=== PATIENT | male | born 1985 | race Caucasian/White ===

== ENCOUNTER 2020-05-02 13:55 | Emergency (ER) | payer OTHER, SELFPAY ==
[2020-05-02 14:18] VITALS: BP 122/78; PULSE 67; RESP 18; TEMP 36.8; O2SAT 98; BMI 28.7
--- NOTE | 2020-05-02 14:29 | DI.RAD.S_ITS ---
PROCEDURE: XR FINGER RT MIN 2V INDICATIONS: right index finger, swollen, unable to flex completely TECHNIQUE: AP hand, 2 views of the index finger(s) acquired. COMPARISON: None. FINDINGS: Bones: No fractures or dislocations. No suspicious bony lesions. A subtle rounded lucency is identified involving the central aspect of the tuft of the distal phalanx of the index finger. Mild degenerative changes of the right hand are present. Soft tissues: No suspicious soft tissue calcifications. Soft tissue swelling on the distal aspect of the index finger is present. No radiopaque foreign bodies are identified. IMPRESSION: 1. No acute fractures. 2. Soft tissue swelling of the index finger. 3. Questionable erosion versus congenital variant involving the tuft of the distal phalanx. If there is clinical concern for osteomyelitis, please consider contrast enhanced MRI of the right hand for further evaluation. Dictated by: Keagan Barba M.D. on 05/02/2020 at 14:16 Approved by: Keagan Barba M.D. on 05/02/2020 at 14:18
--- NOTE | 2020-05-02 14:31 | ED_ITS ---
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 He does not remember injuring his right index finger. He is right-hand dominant. For the last 3 days he has had pain and discomfort in his right index finger unable to flex it completely. The right index finger has bent swollen. He seems to be most tender over the proximal interphalangeal joint. For the pain and discomfort he took 1000 mg of ibuprofen yesterday. He has had no fall or injury that he is aware of. He denies any headache chest pain cough shortness of breath any belly pain nausea or vomiting. Related Data Home Medications Medication Instructions Recorded Confirmed APAP/Ca Carbonate/Mg Carbona 500 mg PO PRN #0 05/31/12 (#EXCEDRIN DUAL ASPIRIN FREE) cephalexin #0 05/31/12 ibuprofen 800 mg PO TID #0 05/31/12 Allergies Allergy/AdvReac Type Severity Reaction Status Date / Time No Known Drug Allergies Allergy Verified 05/02/20 14:23 Review of Systems Review of Systems Narrative: Review of systems are all negative except for those mentioned in the history of present illness. Patient History Social History Smoking Status: Former smoker Smoking Status: Former smoker alcohol intake frequency: 0-2 drinks per day Substance Use Type: does not use Exam Narrative Exam Narrative: PHYSICAL EXAM: CONSTITUTIONAL: Awake, Alert, Oriented, Coherent, Cooperative in NAD. Does not appear toxic or ill. HEAD: AT/NC EENT: PERRL, FROM of eyes, . MOUTH:Oral mucosa is moist and pink. NECK: Supple, no obvious JVD, Trachea is midline without stridor, LUNGS: Clear, symmetrical breath sounds without respiratory distress. HEART: Normal heart tones, regular rhythm and rate without murmur. ABDOMEN: Soft, non-tender, EXTREMITIES: Patient's right index finger is diffusely swollen especially the proximal phalanx. Proximal interphalangeal joint of the right index finger is diffusely tender and boggy without bruising or erythema. The patient has limited ability to completely flex the finger can comparison to his left. NEURO: Awake, alert, oriented, conversive, cranial nerves II-XII are symmetrical , moves all 4 extremities and is ambulatory. Initial Vital Signs Initial Vital Signs: Vital Signs Temperature 98.2 F 05/02/20 14:18 Pulse Rate 67 05/02/20 14:18 Respiratory Rate 18 05/02/20 14:18 Blood Pressure 122/78 05/02/20 14:18 Pulse Oximetry 98 05/02/20 14:18 Course Course Course Narrative: 1447: No fracture noted. Clinically acts like a jammed finger. Orders Ordered: Discontinued Medications Ibuprofen (Advil) 800 mg PO NOW ONE Stop: 05/02/20 14:30 Last Admin: 05/02/20 14:44 Dose: 800 mg Documented by: EUSEBIA Vital Signs Vital signs: Vital Signs - 8 hr 05/02/20 14:18 Temperature 98.2 F Pulse Rate 67 Respiratory Rate 18 Blood Pressure 122/78 Pulse Oximetry 98 Discharge Plan Departure Patient Disposition: Home Clinical Impression: Finger swelling Fingernail injury Qualifiers: Encounter type: initial encounter Laterality: right Qualified Code(s): S69.91XA - Unspecified injury of right wrist, hand and finger(s), initial encounter Jammed interphalangeal joint of finger of right hand Qualifiers: Encounter type: initial encounter Qualified Code(s): S69.91XA - Unspecified injury of right wrist, hand and finger(s), initial encounter Discharge Date/Time: 05/02/20 15:30 Instructions: DI for Finger Flexor Tendon Injury Activity Restrictions/Additional Instructions: 1. Follow-up with your primary care physician. 2. Avoid motions with your finger that are painful. X-rays reveal no fracture. Clinically you are tender over the proximal finger joint which is most commonly caused by jamming the finger. 3. Apply ice cold compresses to the finger every 2 hours for 20-30 minutes to help with the swelling. 4. For the pain and discomfort you can take 3, 200 mg ibuprofen tablets every 6 hours. 5. If the finger becomes red hot or more swollen you need to be re-evaluated and check to make sure your not developing an infection in the finger. Prescriptions: No Action ibuprofen 800 MG tablet 800 mg PO TID Qty: 0 RF: 0 APAP/Ca Carbonate/Mg Carbona (#EXCEDRIN DUAL ASPIRIN FREE) 500 mg PO PRN Qty: 0 RF: 0 cephalexin 250 MG capsule Qty: 0 RF: 0
[2020-05-02] MEDS: IBUPROFEN 400 MG TABLET 800 MG PO (14:44)
[2020-05-02 15:09] VITALS: BP 109/67; PULSE 53; RESP 16; O2SAT 98
== END 2020-05-02 15:30 | disposition home or self-care (01) ==
PROVIDERS: Emergency Provider Emergency Medicine
DX: S69.91XA Unspecified injury of right wrist, hand and finger(s), initial encounter (principal)
CPT/HCPCS: 73140; 99283

== ENCOUNTER → 2020-07-09 06:38 | Outpatient (CLI) | payer OTHER, SELFPAY ==
--- NOTE | 2020-07-09 | DI.RAD.S_ITS ---
PROCEDURE: XR EYE FOREIGN BODY RT INDICATIONS: METAL SCREEN FOR MRI TECHNIQUE: A single view of the right orbit was acquired. COMPARISON: None. FINDINGS: Soft tissues: No metallic foreign bodies are visualized around the orbits. Bones: Bony structures appear unremarkable. Visualized sinuses appear clear. IMPRESSION: No contraindication to MR scanning seen at the right orbit. Dictated by: Benito Gupta M.D. on 07/09/2020 at 8:16 Approved by: Benito Gupta M.D. on 07/09/2020 at 8:16
--- NOTE | 2020-07-09 | DI.RAD.S_ITS ---
PROCEDURE: XR EYE FOREIGN BODY LT INDICATIONS: METAL SCREEN FOR MRI TECHNIQUE: A single view of the left orbit was acquired. COMPARISON: None. FINDINGS: Soft tissues: No metallic foreign bodies are visualized around the orbits. Bones: Bony structures appear unremarkable. Visualized sinuses appear clear. IMPRESSION: No contraindication to MR scanning left orbit area. Dictated by: Benito Gupta M.D. on 07/09/2020 at 8:15 Approved by: Benito Gupta M.D. on 07/09/2020 at 8:16
--- NOTE | 2020-07-09 06:40 | DI.MRI.S_ITS ---
PROCEDURE: MR HAND RT WO CON INDICATIONS: R index finger pain/swelling distal to PIP joint x 1 month TECHNIQUE: Noncontrast coronal T1 spin echo and T2 fast spin echo with fat saturation, axial proton density fast spin echo and T2 fast spin echo with fat saturation, sagittal T1 spin echo and STIR through the hand and fingers. COMPARISON: [facility], CR, XR FINGER RT MIN 2V, 05/02/2020, 14:24. FINDINGS: Image quality: Mildly compromised by patient motion on coronal T2 fat-suppressed images. Diagnostic information is obtained. Bones: The bones are normally aligned, without marrow contusions or fractures. No intra-osseous lesions. Mild degenerative changes are seen at the 1st metacarpophalangeal joint and the 1st carpometacarpal joint. Small nonspecific cystic changes are seen in the 2nd metacarpal head. Chronic fracture deformity is seen at the base of the third metacarpal with mild foreshortening. Mild degenerative changes are seen in the distal interphalangeal joints. Extensor apparatus: The central slips insert normally on the middle phalangeal base. The conjoint and terminal tendons insert normally on the distal phalangeal bases. More proximal portions of the extensor tendons also appear normal. Flexor apparatus: The flexor digitorum superficialis and profundus tendons both appear intact. All annular and cruciform pulleys appear intact, without adjacent soft tissue edema. Soft tissues: Mild nonspecific subcutaneous edema is seen dorsal to the base of the 2nd middle phalanx. Focal subcutaneous signal abnormality is seen at the volar aspect of the thumb adjacent to the interphalangeal joint measuring 6 x 4 x 3 mm. There is a focus of metallic artifact in the subcutaneous tissues at the dorsal radial aspect of the 2nd metacarpophalangeal joint. Visualized muscles demonstrate normal bulk and internal signal. No intramuscular masses identified. IMPRESSION: 1. Mild nonspecific subcutaneous edema at the dorsal aspect of the index finger adjacent to the base of the middle phalanx without a discrete masslike lesion. 2. A more focal area of subcutaneous signal abnormality is seen at the volar aspect of the thumb adjacent to the interphalangeal joint measuring 6 x 4 x 3 mm, possibly representing a ganglion cyst. Recommend correlation with physical exam findings. 3. No acute osseous or ligamentous abnormality is seen. Chronic fracture deformity of the 3rd proximal metacarpal. 4. Mild scattered degenerative changes in the hand as described above. Dictated by: Humberto Lobo M.D. on 07/09/2020 at 9:51 Approved by: Humberto Lobo M.D. on 07/09/2020 at 10:09
== END ==
PROVIDERS: PCP Registered Nurse Diabetes Educator; Referring Provider Registered Nurse Diabetes Educator; Visit Provider Registered Nurse Diabetes Educator
DX: M79.644 Pain in right finger(s) (principal); R60.0 Localized edema; Z13.5 Encounter for screening for eye and ear disorders
CPT/HCPCS: 70030; 73218

== ENCOUNTER → 2023-11-24 08:14 | Outpatient (CLI) | payer OTHER, SELFPAY ==
[2023-11-24 09:26] LABS: Hemoglobin 15.3 g/dL (13.5-17.5); Mean Corpuscular HGB Conc 34.7 % (30-36); Mean Corpuscular Hemoglobin 30.8 PG (26-34); Mean Corpuscular Volume 88.7 fL (80-100); Platelet Count 346 X10^3/uL (150-400); Red Blood Cell Count 4.97 X10^6/uL (4.5-5.9); White Blood Cell Count 7.3 X10^3/uL (4.5-11.0)
[2023-11-24 09:38] LABS: Alanine Aminotransferase 74 IU/L (<50); Albumin 4.6 g/dL (3.5-5.0); Albumin Globulin Ratio 1.4 (1.0-2.8); Alkaline Phosphatase 44 U/L (38-126); Aspartate Aminotransferase 38 IU/L (17-59); BUN Creatinine Ratio 17.1 (6-22); Bilirubin Total 1.5 mg/dL (0.2-1.3); Blood Urea Nitrogen 13 mg/dL (9-20); Calcium 9.7 mg/dL (8.4-10.2); Carbon Dioxide 30 mmol/L (22-32); Chloride 104 mmol/L (98-107); Cholesterol 180 mg/dL (140-199); Estimated Glomerular Filt Rate > 60 mL/min (>60); Globulin 3.3 g/dL (1.7-4.1); Glucose 94 mg/dL (70-100); HDL Cholesterol 39 mg/dL (40-60); HEMOLYSIS < 15 (0-50); LDL Cholesterol Calculated 112 mg/dL (<100); Potassium 4.3 mmol/L (3.4-5.1); Sodium 138 mmol/L (137-145); Total Protein 7.9 g/dL (6.3-8.2); Triglycerides 143 mg/dL (35-150)
[2023-11-24 10:07] LABS: TSH w/ Reflex to FT4 0.83 uIU/mL (0.47-4.68)
== END ==
LOC: LAB 08:16
PROVIDERS: PCP Registered Nurse Diabetes Educator; Referring Provider Registered Nurse Diabetes Educator; Visit Provider Registered Nurse Diabetes Educator
DX: Z00.00 Encounter for general adult medical examination without abnormal findings (principal)
CPT/HCPCS: 36415; 80053; 80061; 84443; 85027

== ENCOUNTER → 2024-02-23 07:40 | Outpatient (CLI) | payer OTHER, SELFPAY ==
[2024-02-23 09:17] LABS: Alanine Aminotransferase 84 IU/L (<50); Albumin 4.7 g/dL (3.5-5.0); Albumin Globulin Ratio 2.1 (1.0-2.8); Alkaline Phosphatase 49 U/L (38-126); Aspartate Aminotransferase 43 IU/L (17-59); Bilirubin Total 1.7 mg/dL (0.2-1.3); Bilirubin Unconjugated 1.5 mg/dL (0.0-1.1); Globulin 2.2 g/dL (1.7-4.1); HEMOLYSIS < 15 (0-50); Total Protein 6.9 g/dL (6.3-8.2)
== END ==
LOC: LAB 07:43
PROVIDERS: PCP Registered Nurse Diabetes Educator; Referring Provider Registered Nurse Diabetes Educator; Visit Provider Registered Nurse Diabetes Educator
DX: R74.8 Abnormal levels of other serum enzymes (principal)
CPT/HCPCS: 36415; 80076

== ENCOUNTER → 2024-03-21 16:32 | Outpatient (CLI) | payer OTHER, SELFPAY ==
--- NOTE | 2024-03-21 17:00 | DI.US.S_ITS ---
PROCEDURE: US ABDOMEN LIMITED INDICATIONS: eval elevated liver enzyme TECHNIQUE: Real-time scanning was performed of the abdominal and retroperitoneal organs, with image documentation. COMPARISON: None. FINDINGS: Evaluation is limited secondary to patient body habitus/bowel gas. Liver: Liver is normal in size and homogeneous in echotexture. Liver parenchyma is diffusely echogenic. Gallbladder: Decompressed, limiting evaluation. No visualized stones or sludge. Normal wall thickness measuring 3 mm. Biliary ducts: Intrahepatic bile ducts are non-dilated. Extrahepatic bile ducts is normal in caliber measuring 2 mm. Pancreas: Not well seen secondary to bowel gas. IMPRESSION: Evaluation is limited secondary to patient body habitus/bowel gas. 1. Liver parenchyma is diffusely echogenic which may be seen in the setting of parenchymal disease such as steatosis. Evaluation of the parenchyma is limited secondary to bowel gas/habitus. If there is clinical suspicion for a mass, recommend a CT or MRI (liver mass protocol). 2. Gallbladder is decompressed with no evidence of acute cholecystitis. No visualized biliary ductal dilatation. Dictated by: Rangel Coleman M.D. on 03/23/2024 at 8:00 Approved by: Rangel Coleman M.D. on 03/23/2024 at 8:02
[2024-03-21 18:19] LABS: HEMOLYSIS < 15 (0-50); Iron 101 ug/dL (49-181)
[2024-03-21 18:31] LABS: Percent Iron Saturation 28 % (20-50); Total Iron Binding Capacity 358 ug/dL (261-462); Transferrin 275 mg/dL (206-381)
[2024-03-21 18:56] LABS: Ferritin 98 ng/mL (18-464)
[2024-03-21 20:37] LABS: Hepatitis B Surface Antigen NEGATIVE s/c (NEGATIVE)
[2024-03-21 20:52] LABS: Hep C Virus Ab w/Reflex Quant NEGATIVE s/c (NEGATIVE)
== END ==
PROVIDERS: PCP Registered Nurse Diabetes Educator; Referring Provider Registered Nurse Diabetes Educator; Visit Provider Registered Nurse Diabetes Educator
DX: R74.8 Abnormal levels of other serum enzymes (principal)
CPT/HCPCS: 36415; 76705; 82728; 83540; 83550; 86803; 87340